=== PATIENT | male | born 1955 | race African-American/Black ===

== ENCOUNTER 2019-07-13 11:01 | Observation (INO) ==
[2019-07-13] MEDS ORDERED: NS 1,000 ML IV ONE ×2 (11:10→13:30)
[2019-07-13] MEDS ORDERED: POTASSIUM CHLORIDE 20 MEQ/SWI 20 MEQ/100 ML IVPB IV PRN (11:10)
[2019-07-13] MEDS ORDERED: HUMULIN R IV ONE (11:31)
[2019-07-13 11:39] LABS: ALLEN TEST YES; BE 0.5 mmoll (-3.0-3.0); BLOOD TYPE ARTERIAL; HCO3-(ACT) 25.1 mmoll (20.0-26.0); METHB 0.6 % (0.0-1.5); O2(CT) 21.7 mL/dL (15.0-23.0); O2HB 92.2 % (95.0-99.0); PCO2(98.6) 41 mmHg (35-45); PO2(98.6) 65 mmHg (60-100); SAMPLE BLOOD; SAO2 94.7 % (95.0-100.0); THB 16.8 g/dL (11.5-17.4)
[2019-07-13 11:40] LABS: MODALITY ROOM AIR
[2019-07-13 11:46] LABS: HEMATOCRIT 46.2 % (42.0-52.0); HEMOGLOBIN 15.9 g/dL (14.0-18.0); MCH 29.4 PG (27-31); MCHC 34.4 g/dL (33-37); MCV 85.4 FL (81-99); MPV 12.9 FL (7.4-10.4); RBC 5.41 XMIL (4.7-6.1); RDW 12.7 % (11.5-14.5); WBC 8.32 X1000 (4.8-10.8)
[2019-07-13 12:28] LABS: ACETONE SERUM NEGATIVE (NEGATIVE)
[2019-07-13 12:39] LABS: URINE SOURCE CLEAN CATCH
[2019-07-13 12:54] LABS: BILIRUBIN URINE NEGATIVE (NEGATIVE); BLOOD URINE NEGATIVE (NEGATIVE); COLOR YELLOW; GLUCOSE URINE >1000 mg/dL (NEGATIVE); KETONE URINE 10 mg/dL (NEGATIVE); LEUKOCYTES URINE NEGATIVE (NEGATIVE); NITRITE URINE NEGATIVE (NEGATIVE); PROTEIN URINE NEGATIVE (NEGATIVE); SP GRAVITY URINE 1.038; TURBIDITY URINE CLEAR (CLEAR); UROBILINOGEN URINE NORMAL (NORMAL)
[2019-07-13 12:56] LABS: UR EPITHELIAL CELLS <10 /HPF (<10); URINE BACTERIA NEGATIVE /HPF; URINE RBC <10 /HPF (<10); URINE WBC <10 /HPF (<10)
[2019-07-13 13:01] LABS: AGAP 17; ALB/GLOB RATIO 1.2; ALBUMIN 4.7 g/dL (3.5-5.0); ALKALINE PHOSPHATASE 116 U/L (32-122); BUN 26 mg/dL (8-22); CHLORIDE 94 mmol/L (98-107); CK PROFILE 1027 U/L (24-204); COSMO 305; CREATININE 1.7 mg/dL (0.7-1.2); ESTIMATED GFR 50; GOT 42 U/L (10-34); GPT 58 U/L (10-44); MAGNESIUM 2.4 mg/dL (1.5-2.7); PHOSPHORUS 4.7 mg/dL (2.7-4.5); POTASSIUM 4.3 mmol/L (3.5-5.1); SODIUM 135 mmol/L (136-145); TCO2 24 mmol/L (25-35); TOTAL BILIRUBIN 0.41 mg/dL (0.20-1.00); TOTAL PROTEIN 8.5 g/dL (6.3-8.3)
[2019-07-13 13:10] LABS: GLUCOSE 638 mg/dL (70-104)
[2019-07-13 13:20] LABS: CK INDEX 0.7 (0.0-2.5)
[2019-07-13 13:24] LABS: UR AMPHETAMINES QUAL NONE DETECTED (NONE DETECT); UR BARBITUATES QUAL NONE DETECTED (NONE DETECT); UR BENZODIAZEPIN QUAL NONE DETECTED (NONE DETECT); UR CANNABINOIDS QUAL NONE DETECTED (NONE DETECT); UR COCAINE QUAL NONE DETECTED (NONE DETECT); UR METHADONE QUAL NONE DETECTED (NONE DETECT); UR OPIATES QUAL NONE DETECTED (NONE DETECT); UR OXYCODONE QUAL NONE DETECTED (NONE DETECT); UR PCP QUAL NONE DETECTED (NONE DETECT)
[2019-07-13] MEDS ORDERED: HUMULIN R 100 UNIT in NS 100 ML IV SCH (13:30)
--- NOTE | 2019-07-13 13:44 | Diag Imaging Result Doc PS360 ---
EXAM: CHEST-1 VIEW 07/13/2019 HISTORY: sepsis protocol TECHNIQUE: AP portable at 1330 COMMENT: The right hemidiaphragm is elevated. There are sternotomy wires. There are no previous studies available for comparison. No evidence of acute pulmonary disease is present. IMPRESSION: No evidence of acute disease. Electronically signed by Vipin Shay 07/13/2019 1:41 PM
--- NOTE | 2019-07-13 14:19 | EKG Report ---
Test Performed on : 07/13/2019 11:34:44 AM Test Reason : dka Blood Pressure : / mmHG Vent. Rate : 082 BPM Atrial Rate : 082 BPM P-R Int : 184 ms QRS Dur : 090 ms QT Int : 380 ms P-R-T Axes : 062 035 052 degrees QTc Int : 443 ms Normal sinus rhythm. Normal ECG When compared with ECG of 13-JUL-2019 11:34, (Unconfirmed) No significant change was found Unconfirmed Result
[2019-07-13 14:40] LABS: BASO# 0.03 X1000 (0.0-0.2); BASO% 0.4 % (0.0-0.8); EOS% 2.4 % (0.0-10.0); HEMATOCRIT 45.8 % (42.0-52.0); HEMOGLOBIN 15.8 g/dL (14.0-18.0); LYMPH# 3.39 X1000 (1.2-3.4); LYMPH% 41.1 % (20.5-51.1); MCH 29.5 PG (27-31); MCHC 34.5 g/dL (33-37); MCV 85.6 FL (81-99); MONO# 0.58 X1000 (0.11-0.59); MPV 13.8 FL (7.4-10.4); NEUT# 4.05 X1000 (1.4-6.5); NEUT% 49.1 % (42.2-75.2); PLT 165 X1000 (130-400); RBC 5.35 XMIL (4.7-6.1); RDW 12.6 % (11.5-14.5); WBC 8.25 X1000 (4.8-10.8)
[2019-07-13 14:47] LABS: INR 0.99; PROTIME 13.2 Seconds (11.0-16.0)
[2019-07-13 14:48] LABS: PTT 24.9 Seconds (22.3-41.8)
[2019-07-13] MEDS: HUMALOG SUBQ SCH ×2 (17:56→20:22)
[2019-07-13] MEDS: 1/2 NS 1,000 ML IV SCH (20:08)
[2019-07-13] MEDS: LOVENOX SUBQ SCH (20:08)
--- NOTE | 2019-07-13 20:59 | HISTORY AND PHYSICAL ---
Mr. Mcdonald who is a 64-year-old gentleman who comes to the emergency room with history of persistent nausea, polydipsia, polyuria. He has been feeling weak. He says he has diabetes since 2017 and hypertension for long time. He is a patient of Dr. Neri who prescribed him Januvia 100 mg and Trulicity however Mr. Mcdonald has stopped Trulicity for last 7 months. He has not informed Dr. Neri about that. His diabetes has been uncontrolled and he has classic symptoms of uncontrolled diabetes hence blood sugar was around 678, hence he was admitted for hyperglycemia. His lactate level was also slightly elevated. PAST SURGICAL HISTORY: Reveal history of triple vessel coronary artery bypass surgery in 2009 done at [facility]. He says he was told that he had a light heart attack prior to that. He also had umbilical hernia repair by Dr. Markus Sebastian here at [facility]. He is obese. 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 He does not smoke, does not drink. ALLERGIES: He is not allergic to any medications. REVIEW OF SYSTEMS: Generalized weakness and current symptoms is negative. PHYSICAL EXAMINATION: Patient is alert. VITAL SIGNS: Temperature normal, pulse 85 per minute, respiratory rate 16 per minute, blood pressure 125/79. HEAD: Normocephalic, pupils PERRLA. Fundus examination normal. NECK: Supple, JVP normal. ENT examination unremarkable. There is no evidence of lymphadenopathy, thyroid enlargement, pedal edema, calf tenderness, anemia, cyanosis or clubbing. Pedal pulses well felt. BREAST: Normal chest, normal inspection. LUNGS: Clear on auscultation. PMI in the normal position. HEART: Sounds normal. No murmur, gallop or rub noted. ABDOMEN: Nondistended, hernial orifices normal. No guarding, rigidity, free fluid, masses or organomegaly. Bowel sounds normal. RECTAL: Deferred. CV TECH: Higher functions normal. Cranial nerves normal. Motor and sensory system unremarkable. Deep tendon reflexes normal. Plantars downgoing. Skull and spine examination normal for age. No cerebellar signs or signs of meningeal irritation. Local motor, skin unremarkable. IMPRESSION: Uncontrolled diabetes. Patient may have mild diabetic ketoacidosis as his plasma lactate is 2.3. Blood sugar, urinalysis has been negative. We will keep him on sliding scale and watch him closely. cc: MD REANNA Hearn
[2019-07-14] MEDS: PROTONIX PO SCH ×3 (01:03→21:05)
[2019-07-14] MEDS: HUMALOG SUBQ SCH ×4 (06:24→21:04)
[2019-07-14] MEDS: 1/2 NS 1,000 ML IV SCH ×2 (06:25→18:41)
[2019-07-14] MEDS: JANUVIA PO SCH (08:14)
[2019-07-14] MEDS: TOPROL XL PO SCH (08:14)
--- NOTE | 2019-07-14 14:10 | PROGRESS NOTE ---
DATE: 07/14/2019 Mr. Mcdonald is feeling better. His lungs are clear. Heart sounds are normal. Vital signs are stable. Blood sugar is 184, which is significantly better. Will continue with the current management on him. -3 cc: Cameron Singletary MD
[2019-07-14] MEDS: LOVENOX SUBQ SCH (21:05)
[2019-07-15] MEDS: 1/2 NS 1,000 ML IV SCH ×3 (01:35→20:57)
[2019-07-15] MEDS: HUMALOG SUBQ SCH ×4 (06:37→20:56)
[2019-07-15] MEDS: JANUVIA PO SCH (08:07)
[2019-07-15] MEDS: TOPROL XL PO SCH (08:07)
[2019-07-15] MEDS: PROTONIX PO SCH (08:07)
[2019-07-15] MEDS ORDERED: BYDUREON SUBQ ONE (08:57)
[2019-07-15 09:56] LABS: BASO# 0.02 X1000 (0.0-0.2); BASO% 0.3 % (0.0-0.8); EOS# 0.26 X1000 (0.0-0.7); EOS% 3.7 % (0.0-10.0); HEMATOCRIT 41.5 % (42.0-52.0); LYMPH# 3.33 X1000 (1.2-3.4); LYMPH% 47.8 % (20.5-51.1); MCH 29.5 PG (27-31); MCHC 33.7 g/dL (33-37); MCV 87.4 FL (81-99); MONO# 0.45 X1000 (0.11-0.59); MONO% 6.5 % (1.7-9.3); MPV 12.2 FL (7.4-10.4); NEUT% 41.7 % (42.2-75.2); PLT 133 X1000 (130-400); RBC 4.75 XMIL (4.7-6.1); RDW 12.8 % (11.5-14.5); WBC 6.96 X1000 (4.8-10.8)
[2019-07-15 10:16] LABS: HEMOGLOBIN A1C 11.1 % (4.8-6.0)
[2019-07-15 10:39] LABS: ALB/GLOB RATIO 1.1; ALBUMIN 3.6 g/dL (3.5-5.0); CALCIUM 8.6 mg/dL (8.8-10.2); CREATININE 1.6 mg/dL (0.7-1.2); POTASSIUM 3.5 mmol/L (3.5-5.1); TOTAL BILIRUBIN 0.38 mg/dL (0.20-1.00); TOTAL PROTEIN 6.9 g/dL (6.3-8.3)
[2019-07-15 11:15] LABS: CK INDEX 0.5 (0.0-2.5); CK-MB 5.39 ng/mL (0.0-5.0)
[2019-07-15] MEDS: LOVENOX SUBQ SCH (20:56)
--- NOTE | 2019-07-15 21:50 | PROGRESS NOTE ---
DATE: 07/15/2019 SUBJECTIVE: A 64-year-old male admitted to the hospital on 07/13/[address] Singletary. He was seen in my office in February. A1c was 6.7, creatinine 1.7. He was given Ozempic and Januvia. He is not monitoring blood sugars, and other options are discussed. Events were noted. He was admitted to the hospital with hyperglycemic dehydration. He is anxious to go home, and IV fluids were stopped. REVIEW OF SYSTEMS: None reported. PAST MEDICAL HISTORY: Reviewed. PAST SURGICAL HISTORY: Reviewed. MEDICINES: Reviewed. ALLERGIES: Not known. OBJECTIVE: Vital signs: Temperature is 97.7 degrees, pulse 75, blood pressure 128/75, 95% on room air. General: Morbidly obese, atraumatic, normocephalic. Pupils equal, reactive to light. Neck: Supple. No lymphadenopathy. Chest: Bilateral air entry. Cardiovascular: Distant heart sounds. Abdomen: Belly is soft, obese. Central obesity noted. Extremities: No peripheral edema. Neurological: No obvious neurological deficits. INVESTIGATIONS: As follows, CBC: White cell count 6.9, hematocrit 41.5, platelets 133,000. ABG: pH is 7.40, pCO2 41, pO2 65 on room air. Sodium 135, potassium 3.5. Anion gap is 13, BUN 16, creatinine 1.6, glucose 230, A1c 11.1, calcium came down to 8.6. AST and ALT high. CK 1000. LFTs were coming down. C-peptide is pending. Urine toxic screen was negative. Chest x-ray: Cardiomegaly, elevation of right hemidiaphragm, nothing acute. EKG: Normal sinus, Q-wave inversions in the anterior precordial leads. ASSESSMENT AND PLAN: 1. Uncontrolled diabetes and blood sugar was 678. Continue on IV fluids. 2. Coronary artery disease status post bypass surgery, currently on aspirin, metoprolol. 3. Acid reflux disease on Protonix. 4. Deep venous thrombosis prophylaxis with Lovenox. 5. Uncontrolled diabetes due to noncompliance with diet. Unable to do metformin due to elevation of creatinine. Continue on Januvia, and he was in Ozempic, not able to get the medicine through the insurance company, changed to [employer] [facility] and also [facility] prescription for monitoring blood sugars. Continue IV fluids. I want to check the C-peptide level before he will be discharged and currently stable. 6. Hyperlipidemia. Started on Lipitor 20 mg daily and discussed the plan of care. LEVEL OF DOCUMENTATION: 35 minutes. cc: MD Cameron Mondragon MD MTDD
[2019-07-15] MEDS: NS 1,000 ML IV SCH ×2 (22:02→23:19)
[2019-07-16 06:17] LABS: ESTIMATED GFR > 60
[2019-07-16] MEDS: HUMALOG SUBQ SCH (06:26)
[2019-07-16 06:32] LABS: AGAP 10; BUN 15 mg/dL (8-22); CALCIUM 8.4 mg/dL (8.8-10.2); CHLORIDE 100 mmol/L (98-107); CHOLESTEROL 215 mg/dL (0-200); CK PROFILE 893 U/L (24-204); COSMO 276; CREATININE 1.4 mg/dL (0.7-1.2); GLUCOSE 256 mg/dL (70-104); HDL 27 mg/dL (35-55); POTASSIUM 3.6 mmol/L (3.5-5.1); SODIUM 133 mmol/L (136-145); TCO2 23 mmol/L (25-35); TRIGLYCERIDES 442 mg/dL (39-160)
[2019-07-16 07:41] LABS: CK INDEX 0.6 (0.0-2.5); CK-MB 5.08 ng/mL (0.0-5.0)
[2019-07-16 07:45] VITALS: BP 119/79
[2019-07-16] MEDS: PROTONIX PO SCH (08:05)
[2019-07-16] MEDS: TOPROL XL PO SCH (08:05)
[2019-07-16] MEDS: JANUVIA PO SCH (08:05)
[2019-07-16] MEDS ORDERED: PREVNAR 13 IM ONE (08:40)
[2019-07-16] MEDS ORDERED: ASPIRIN PO SCH (09:00)
--- NOTE | 2019-07-18 17:29 | DISCHARGE SUMMARY ---
ADMISSION DATE: 07/13/2019 DISCHARGE DATE: 07/16/2019 DISCHARGING DIAGNOSES: 1. Uncontrolled diabetes due to noncompliance and C-peptide 2.6. 2. Chronic kidney disease stage 2, creatinine 1.7. 3. Left calcaneal spur. 4. Coronary artery disease with status post bypass surgery. 5. Metabolic syndrome - BMI 45.7. 6. Essential hypertension. 7. Umbilical hernia, status post repair by Dr. Sebastian BRIEF HISTORY: Please see the H and P that was done by Dr. Singletary. In brief, he is a 64-year-old male who came in with uncontrolled blood sugars. He is feeling weak, polyuria, and polydipsia. Blood sugars is around 600. The patient was admitted in [facility]. The patient was started on IV fluids and followup hydration and insulin sliding scale. The sugars were coming down. He was on Januvia. He was not taking [*]. His C-peptide is 2.6. The patient is feeling much better, and patient was given a [*]prescription outpatient diabetic teaching classes. LABORATORY: White cell count 6.9, hematocrit 41.5, and platelets 133,000. Sodium 133, potassium 3.6, BUN 15, creatinine 1.4, and glucose 240. Persistent elevated CK at 893, cholesterol 215, triglycerides 442. Urinalysis is clear. Urine tox screen was negative. EKG normal sinus nothing acute. Chest x-ray with no evidence of acute disease. The patient was discharged home stable with the following instructions. DISCHARGE MEDICATIONS: 1. Protonix 40 daily. 2. Metoprolol 25 daily. 3. Januvia 100 daily. 4. Zetia 10 mg daily. 5. Aspirin 81 mg daily. 6. [*] 2 mg once a week. 7. Consider low dose of long-acting insulin. Since the creatinine is elevated, other options will be discussed. Outpatient diabetic teaching classes. FOLLOW UP: Follow up in my office next week. cc: MD Cameron Mondragon MD
== END 2019-07-16 10:22 | disposition home or self-care (01) | DRG 638 ==
LOC: ED 11:01 → 2N 15:25 → INTOOBSV 15:25
PROVIDERS: ADMIT Internal Medicine; ATTEND Internal Medicine